=== PATIENT | male | born 1985 | race Caucasian/White ===

== ENCOUNTER 2017-12-24 13:05 | Emergency (ER) | payer SELFPAY, MEDICAID ==
[2017-12-24 13:52] LABS: URINE PH (Dip) POC 5.5 (5.0-8.5)
[2017-12-24 13:52] LABS: URINE BLOOD (Dip) POC Trace-intact (NEGATIVE); URINE GLUCOSE (Dip) POC Negative (NEGATIVE); URINE KETONES (Dip) POC Negative (NEGATIVE); URINE LEUKOCYTE EST (Dip) POC Negative (NEGATIVE); URINE NITRITE (Dip) POC Negative (NEGATIVE); URINE TOTAL PROTEIN POC Negative (NEGATIVE)
== END 2017-12-24 14:00 | disposition home or self-care (01) ==
LOC: FTE 13:05
DX: R59.9 Enlarged lymph nodes, unspecified (principal)
CPT/HCPCS: 81003; 99283

== ENCOUNTER 2017-12-26 18:40 | Emergency (ER) | payer SELFPAY ==
[2017-12-26 20:45] LABS: URINE BLOOD (Dip) POC Trace-intact (NEGATIVE); URINE GLUCOSE (Dip) POC Negative (NEGATIVE); URINE KETONES (Dip) POC Negative (NEGATIVE); URINE LEUKOCYTE EST (Dip) POC Negative (NEGATIVE); URINE NITRITE (Dip) POC Negative (NEGATIVE); URINE TOTAL PROTEIN POC Negative (NEGATIVE)
[2017-12-26 20:45] LABS: URINE PH (Dip) POC 6.5 (5.0-8.5)
[2017-12-26] MEDS: KETOROLAC 60 MG INJ IM (21:09)
== END 2017-12-26 21:45 | disposition home or self-care (01) ==
LOC: FTE 18:40
DX: R30.0 Dysuria (principal); R19.7 Diarrhea, unspecified; N50.812 Left testicular pain
CPT/HCPCS: 76870; 81003; 96372; 99285-25